=== PATIENT | male | born 1990 | race Two or more races ===

== ENCOUNTER 2020-05-16 09:38 | Emergency (ER) | payer MEDICAID ==
[~2020-05-16] VITALS: Ht 167.6 cm; Wt 68.0 kg
[2020-05-16 10:18] VITALS: BP 138/80
[2020-05-16] MEDS ORDERED: cefTRIAXone SOD 1,000 MG VL IM ONE (10:30)
[2020-05-16 11:12] LABS: Urine Bacteria NONE SEEN /hpf (None Seen); Urine Blood Negative /uL (Negative); Urine Mucus FEW (None Seen); Urine Specific Gravity 1.023 (1.001-1.035); Urine WBC 4 /hpf (0 - 3)
== END 2020-05-16 11:13 | disposition home or self-care (01) ==
LOC: ER 09:38
DX: N34.2 Other urethritis (principal); Z20.2 Contact with and (suspected) exposure to infections with a predominantly sexual mode of transmission; F17.210 Nicotine dependence, cigarettes, uncomplicated
CPT/HCPCS: 81001; 96372; 99284; J0696

== ENCOUNTER 2020-05-20 09:29 | Emergency (ER) | payer MEDICAID ==
[~2020-05-20] VITALS: Ht 165.1 cm; Wt 68.0 kg
[2020-05-20 09:56] VITALS: BP 128/93
[2020-05-20] MEDS ORDERED: AZITHROMYCIN 250 MG TAB PO ONE (10:00)
[2020-05-20] MEDS ORDERED: cefTRIAXone SODIUM 250 MG VL IM ONE (10:00)
== END 2020-05-20 10:31 | disposition left against medical advice (07) ==
LOC: ER 09:29
DX: R31.9 Hematuria, unspecified (principal); Z20.2 Contact with and (suspected) exposure to infections with a predominantly sexual mode of transmission; F17.210 Nicotine dependence, cigarettes, uncomplicated
CPT/HCPCS: J0696

== ENCOUNTER 2020-06-19 16:02 | Emergency (ER) | payer MEDICAID ==
[~2020-06-19] VITALS: Ht 167.6 cm; Wt 68.0 kg
[2020-06-19 16:03] VITALS: BP 121/73
== END 2020-06-19 18:37 | disposition home or self-care (01) ==
LOC: ER 16:02
DX: M25.571 Pain in right ankle and joints of right foot (principal); Z53.21 Procedure and treatment not carried out due to patient leaving prior to being seen by health care provider; W18.39XA Other fall on same level, initial encounter; Y93.89 Activity, other specified; Y92.89 Other specified places as the place of occurrence of the external cause; Y99.8 Other external cause status

== ENCOUNTER 2020-06-25 12:30 | Emergency (ER) | payer MEDICAID ==
[~2020-06-25] VITALS: Ht 167.6 cm; Wt 68.0 kg
[2020-06-25 14:11] VITALS: BP 116/62
== END 2020-06-25 14:27 | disposition home or self-care (01) ==
LOC: ER 12:30
DX: S93.401A Sprain of unspecified ligament of right ankle, initial encounter (principal); F17.210 Nicotine dependence, cigarettes, uncomplicated; W19.XXXA Unspecified fall, initial encounter; Y93.89 Activity, other specified; Y92.89 Other specified places as the place of occurrence of the external cause; Y99.8 Other external cause status
CPT/HCPCS: 73610